=== PATIENT | female | born 1965 | race Caucasian/White ===

== ENCOUNTER 2016-10-16 13:27 | Emergency (ER) | payer MEDICAID | END 2016-10-16 16:15 | disposition left against medical advice (07) | LOC: D.ER 13:27 | DX: H92.01 Otalgia, right ear (principal) ==

== ENCOUNTER 2019-01-25 20:20 | Emergency (ER) | payer MEDICAID ==
[~2019-01-25] VITALS: Ht 162.6 cm; Wt 86.4 kg
[2019-01-25 20:37] VITALS: Ht 162.6 cm; Wt 86.4 kg
[2019-01-25 21:44] VITALS: BP 168/85
== END 2019-01-25 21:45 | disposition home or self-care (01) ==
LOC: D.ER 20:20
DX: S61.211A Laceration without foreign body of left index finger without damage to nail, initial encounter (principal); X58.XXXA Exposure to other specified factors, initial encounter; Y93.89 Activity, other specified; Y92.89 Other specified places as the place of occurrence of the external cause